=== PATIENT | male | born 1950 | race Caucasian/White ===

== ENCOUNTER 2022-04-13 17:23 | Inpatient (IN) | payer MEDICARE, SELFPAY ==
[2022-04-13] VITALS (9 sets, daily range): BP systolic 112–158; BP diastolic 68–124; PULSE 78–89; RESP 12–18; TEMP 36.3–36.7; O2SAT 92–98; BMI 26.3; BMI 25.0
--- NOTE | 2022-04-13 17:30 | ED.RN ---
BLOOD GLUCOSE 216
[2022-04-13 17:35] LABS: Bedside Glucose 216 mg/dL (74-106)
--- NOTE | 2022-04-13 17:42 | EKG12_ITS ---
Test Reason : Blood Pressure : / mmHG Vent. Rate : 083 BPM Atrial Rate : 083 BPM P-R Int : 174 ms QRS Dur : 094 ms QT Int : 438 ms P-R-T Axes : 037 -09 041 degrees QTc Int : 514 ms Sinus rhythm with frequent and consecutive Premature ventricular complexes Prolonged QT Abnormal ECG Confirmed by PHILIP ANTON, CHARLEE ([id number]), copy editor WENDI SHAH ([id number]) on 04/16/2022 1:05:35 PM Referred By: JERMAINE Confirmed By:CHARLEE PALACIOS MD
--- NOTE | 2022-04-13 17:42 | CT_ITS ---
STUDY: CT BRAIN WITHOUT CONTRAST REASON FOR EXAM: Male, 71 years old. headache TECHNIQUE: Transaxial CT imaging of the brain was performed without administration of intravenous contrast material. Individualized dose optimization techniques were used for this CT. COMPARISON: None FINDINGS: Normal calvarium. Normal soft tissues. Normal size ventricles and extra-axial spaces for the patient''s age. There are areas of decreased attenuation within the white matter tracts of the supratentorial brain, consistent with microvascular disease changes. Normal basal ganglia and thalami. Normal brainstem. Normal cerebellum. There is no intracranial hemorrhage. There are no findings of an acute ischemic infarction. Normal visualized paranasal sinuses. ASPECTS 10 CT/Brain/Head without Contrast IMPRESSION: There are no acute intracranial findings. Electronically Signed: Jason Sanchez MD at 19:20 EDT ,
--- NOTE | 2022-04-13 17:42 | EX.ED.DYSGE1 ---
HPI History of Present Illness Chief Complaint: Syncope Informant: patient Narrative Narrative: Patient presents after an episode of vertigo nausea and vomiting in near syncope that occurred at work. 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 He states he got very dizzy. He felt lightheaded. But he had a sense of motion. He then got nauseated and vomited. He felt like his got a pass out. He notes that when he turns to the right he has more symptoms. But looking straight he still has the nausea. He has never had chest pain or shortness of breath. No back pain. No abdominal pain. He has not been sick recently. He admits that he did not really eat anything today. He did take his meds. No diarrhea. No urinary symptoms. No headache at any time. No numbness tingling weakness swallowing or breathing. He denies change in voice. Speech or vision changes. Past medical history: High blood pressure diabetes Medications: Lotrel, carvedilol, metformin Allergy to sulfa No recent surgeries Still works independently [facility] Medical History Diabetes mellitus, type 2 High blood pressure Sleep apnea Tobacco use Home Medications amlodipine-benazepril [Lotrel] 1 cap PO DAILY 04/13/22 [History Last Taken Unknown] carvedilol 12.5 mg PO DAILY 04/13/22 [History Last Taken Unknown] metformin 500 mg PO DAILY 04/13/22 [History Last Taken Unknown] Allergy/AdvReac Type Severity Reaction Status Date / Time Sulfa (Sulfonamide AdvReac Other Verified 04/13/22 17:29 Antibiotics) Social History Smoking Status: Current every day smoker tobacco type: cigarettes ROS ROS ED Constitutional Constitutional ED: Denies chills or fever(s) Eyes Eyes: Denies blurry vision, change in vision or diplopia ENT ENT ED: Denies ear pain or rhinorrhea Cardiovascular Cardiovascular: Denies chest pain, palpitations or racing heartbeat Respiratory/Chest Respiratory/Chest: Denies cough, dyspnea or sputum Gastrointestinal Gastrointestinal: Reports nausea and vomiting; Denies abdominal pain, constipation, diarrhea or melena Genitourinary Genitourinary ED: Denies dysuria Musculoskeletal Musculoskeletal: Denies back pain, myalgias or neck pain Integumentary Denies rash Neurologic Neurologic: Denies headache(s), paresthesias or weakness Psychiatric Psychiatric: Denies anxiety or depression Endocrine Endocrinology: Denies polydipsia or polyuria Allergic/Immunologic Allergic/Immunologic ED: Denies urticaria EXAM Physical Exam Const Vital Signs: 04/13/22 17:24 04/13/22 18:07 04/13/22 18:08 Temperature 97.4 F L Temperature Source Temporal Pulse Rate 89 78 Respiratory Rate 13 12 Respiratory Effort Normal Respiratory Pattern Normal Blood Pressure 139/124 H 158/106 H Blood Pressure Mean 129 123 Pulse Ox 96 96 Oxygen Delivery Method Room Air Room Air 04/13/22 19:40 04/13/22 20:24 Temperature Temperature Source Pulse Rate 85 87 Respiratory Rate 18 18 Respiratory Effort Respiratory Pattern Blood Pressure 112/70 153/83 H Blood Pressure Mean 84 106 Pulse Ox 94 98 Oxygen Delivery Method Room Air Room Air Patient is holding an emesis bag. He is having retching but no actual vomiting. Positive well nourished and well developed General Appearance ED: well developed; Negative for cyanotic or diaphoretic HEENT Reports moist mucous membranes HEENT Narrative: No trauma or rash. Negative for trauma or tenderness Eyes PERRL and EOMs intact bilaterally Eyes Narrative: Pupillary responses normal. When I have him look to the right he does get a little bit of horizontal nystagmus that is delayed for a few seconds. It and resolves on its own. Neck no lymphadenopathy and supple Chest Wall inspection of chest normal Resp normal respiratory effort and clear to auscultation bilaterally Cardio regular rate, regular rhythm and no murmurs GI normal to inspection, nondistended, normoactive bowel sounds, non-tender and non-distended Back/Spine no CVA tenderness Extremity normal to inspection General Extremety ED: Negative for edema or tenderness General Extremity: Negative for edema Neuro oriented x3 Neuro Narrative: No numbness tingling weakness. No facial droop. No visual field cut. NIH is 0. Sensorium / Orientation: alert Psych mental status grossly normal Skin no rashes or lesions noted MDM MDM MDM Narrative Medical decision making narrative: Patient's electrolytes show minimally decreased potassium. Creatinine and BUN are slightly elevated but not significantly so. Glucose was 200. Liver function tests are overall unremarkable. Troponin was 4 and repeat was 3. CBC showed normal platelets and hemoglobin. However his white count was quite high at 17.2. This elevated white count could be due to the forceful vomiting he has been doing. But we did pursue potential infectious etiology. Urine shows no acute sign of infection. His chest x-ray did hint of a right base infiltrate though. Patient did have a desaturation about 89% here. It is unclear if this was due to pneumonia or his history of sleep apnea after getting meds here. However, with his white count, x-ray finding and desaturation we will treat as pneumonia pending further work-up. Patient is still having intermittent episodes of dry heaves despite multiple meds. I discussed case with hospitalist and he will be admitted. Lab Data Attestation: I reviewed the patient's lab results. Labs: Laboratory Results - last 24 hr 04/13/22 04/13/22 04/13/22 17:12 17:12 17:28 WBC 17.2 H RBC 4.80 Hgb 15.0 Hct 43.9 MCV 91.5 MCH 31.3 MCHC 34.2 RDW Std Deviation 47.1 H RDW Coeff of Kimber[place] 14.0 Plt Count 322 MPV 10.9 Immature Gran % (Auto) 0.500 Neut % (Auto) 53.5 Lymph % (Auto) 34.3 [place] % (Auto) 10.8 H Eos % (Auto) 0.5 Baso % (Auto) 0.4 Absolute Neuts (auto) 9.2 H Absolute Lymphs (auto) 5.89 H Nucleated RBC % 0 Differential Comment Diff Path Review May foll Reactive Lymphocytes 1+ Platelet Estimate ADEQUATE RBC Morphology NORM C+C Sodium 137 Potassium 3.4 L Chloride 105 Carbon Dioxide 23.0 Anion Gap 9 BUN 21 H Creatinine 1.37 H Estim Creat Clear Calc 57.50 Est GFR (MDRD) Af Amer 66 Est GFR (MDRD) Non-Af 54 L BUN/Creatinine Ratio 15.3 Glucose 200 H Lactic Acid Calcium 9.6 Total Bilirubin 0.60 AST 14 L ALT 29 Alkaline Phosphatase 52 Troponin I High Sens 4 Total Protein 8.4 H Albumin 4.2 Globulin 4.2 Albumin/Globulin Ratio 1.0 Urine Color Urine Clarity Urine pH Ur Specific [place] Urine Protein Urine Glucose (UA) Urine Ketones Urine Occult Blood Urine Nitrite Urine Bilirubin Urine Urobilinogen Ur Leukocyte Esterase Urine RBC Urine WBC Ur Squamous Epith Cells Amorphous Sediment Urine Bacteria Urine Mucus POC Glucose 216 H 04/13/22 04/13/22 04/13/22 18:08 19:30 20:20 WBC RBC Hgb Hct MCV MCH MCHC RDW Std Deviation RDW Coeff of Kimber[place] Plt Count MPV Immature Gran % (Auto) Neut % (Auto) Lymph % (Auto) [place] % (Auto) Eos % (Auto) Baso % (Auto) Absolute Neuts (auto) Absolute Lymphs (auto) Nucleated RBC % Differential Comment Diff Path Review Reactive Lymphocytes Platelet Estimate RBC Morphology Sodium Potassium Chloride Carbon Dioxide Anion Gap BUN Creatinine Estim Creat Clear Calc Est GFR (MDRD) Af Amer Est GFR (MDRD) Non-Af BUN/Creatinine Ratio Glucose Lactic Acid 1.8 Calcium Total Bilirubin AST ALT Alkaline Phosphatase Troponin I High Sens 3 Total Protein Albumin Globulin Albumin/Globulin Ratio Urine Color Yellow Urine Clarity Sl. Cloudy Urine pH 6.5 Ur Specific [place] 1.010 Urine Protein Negative Urine Glucose (UA) 250 H Urine Ketones 50 H Urine Occult Blood 10 H Urine Nitrite Negative Urine Bilirubin Negative Urine Urobilinogen Normal Ur Leukocyte Esterase Negative Urine RBC 0-5 SEEN Urine WBC 0 SEEN Ur Squamous Epith Cells 0-5 SEEN Amorphous Sediment 1+ URATE Urine Bacteria 0 SEEN Urine Mucus 0 SEEN POC Glucose Radiography Diagnostic Testing: Clinical Impression(s) from Imaging Studies Brain CT 04/13/22 17:42 IMPRESSION: There are no acute intracranial findings. Electronically Signed: Jason Sanchez MD at 19:20 EDT , Chest X-Ray 04/13/22 20:48 IMPRESSION: Right lower lobe infiltrate. Electronically Signed: Jason Sanchez MD at 21:01 EDT , EKG Initial EKG: Comments: EKG done for lightheadedness read by me shows sinus rhythm with frequent PVCs. Patient and son regarding transfer irregular baseline. However, no ST elevation or pression. Globus. Patient is ID interval and QRS duration With. There is prolonged QTC at 514 ms. There is no old for comparison. Discharge Plan Dx/Rx/DC Orders Clinical Impression: Vertigo, Near syncope, Pneumonia, Leukocytosis Disposition Disposition: Acute Care Hospital [facility]
[2022-04-13] MEDS: Ondansetron 4 MG/2 ML Vial IV ×2 (18:06→20:38)
[2022-04-13 18:11] LABS: Absolute Lymphocyte Count 5.89 X10^3/uL (0.83-4.51); Absolute Neutrophil Count 9.2 X10^3/uL (2.0-7.7); Basophil# 0.07 X10^3/uL; Basophil% 0.4 % (0-1); Eosinophil# 0.09 X10^3/uL; Eosinophils% 0.5 % (0-5); Hematocrit 43.9 % (40-54); Lymphocyte # 5.89 X10^3/ul (0.83-4.51); Lymphocyte % 34.3 % (19-41); Mean Corp Hgb Conc 34.2 g/dL (32-36); Mean Corpuscular Hgb 31.3 pg (27.0-32.0); Mean Corpuscular Volume 91.5 fL (80-94); Mean Platelet Vol. 10.9 fl (6.2-12.0); Monocyte# 1.85 X10^3/uL; Monocyte% 10.8 % (0-10); NRBC Flagged by Analyzer 0 % (0-5); Neutrophil # 9.17 X10^3/uL (2.7-7.7); Neutrophil % 53.5 % (47-70); POSITIVE DIFFERENTIAL YES; Platelet Count 322 K/mm3 (150-450); RBC Distribution Width SD 47.1 fl (35.1-43.9); White Blood Count 17.2 K/mm3 (4.4-11.0)
--- NOTE | 2022-04-13 18:11 | CM.ED ---
SW reviewed tracker. No PCP listed. Patient has PCP as he is a type 1 diabetic per IVANA Gasca. Patient is from [facility] and his pharmacy is in [place]. As patient has a PCP no SW needs identified. Vangie OBRIEN
[2022-04-13 18:31] LABS: AST(SGOT) 14 U/L (15-37); Alanine Aminotransfer ALT/SGPT 29 U/L (16-61); Albumin, Serum 4.2 g/dL (3.2-5.0); Alkaline Phosphatase 52 U/L (45-117); Anion Gap 9 (5-15); BUN 21 mg/dL (7-18); BUN/Creat Ratio 15.3 RATIO (10-20); Calcium,Total 9.6 mg/dL (8.5-10.1); Chloride 105 mmol/L (98-107); Creatinine, Serum 1.37 mg/dL (0.70-1.30); EST Glomerular Filtration Rate 54 mL/min (>60); Est Glom Filt Rate - Afr Amer 66 mL/min (>60); Globulin 4.2 g/dL (2.2-4.2); Glucose 200 mg/dL (74-106); Potassium 3.4 mmol/L (3.5-5.1); Protein, Total 8.4 g/dL (6.4-8.2); Sodium Level 137 mmol/L (136-145); Troponin-I HS (w/2H Reflex) 4 pg/mL (3.0-78.0)
[2022-04-13 18:35] LABS: Differential Indicated SCAN CRITERIA MET
[2022-04-13] MEDS: proMETHazine 25 MG/ML Syringe 12.5 MG IM (18:49)
[2022-04-13 19:32] LABS: Platelet Estimate ADEQUATE (ADEQ); Reactive Lymphocyte 1+; Red Cell Morphology NORM C+C NORMAL (NORM C&C)
[2022-04-13 19:38] LABS: Lactic Acid 1.8 mmol/L (0.4-1.9)
[2022-04-13] MEDS: Meclizine HCl 25 MG Tablet PO (19:38)
[2022-04-13 19:44] LABS: Bacteria 0 SEEN /hpf (None Seen); Mucous, Urine 0 SEEN /hpf (<or=2+); White Blood Cells 0 SEEN /hpf (0-5)
[2022-04-13 19:46] LABS: Color, Urine Yellow (Yellow); Glucose, Dipstick 250 mg/dl (Normal); Ketone-Dipstick 50 mg/dl (Negative); Leukocyte Esterase-Dipstick Negative /ul (Negative); Nitrite-Dipstick Negative (Negative); Occult Blood-Urine 10 /ul (Negative); Protein-Dipstick Negative (Negative); Urine Bilirubin Dipstick Negative (Negative); Urine Clarity Sl. Cloudy (Clear); Urine Urobilinogen Normal (Normal); Urine pH 6.5 (5.0 - 8.0)
[2022-04-13 19:56] LABS: Amorphous Sediment 1+ URATE; Red Blood Cells-Urine 0-5 SEEN /hpf (0-5); Squamous Epithelial Cells - UA 0-5 SEEN /hpf (0-5)
[2022-04-13 20:06] LABS: Reflex Troponin-HS? (from REC) Y
[2022-04-13 20:48] LABS: Troponin-I HS 3 pg/mL (3.0-78.0)
--- NOTE | 2022-04-13 20:48 | RAD_ITS ---
STUDY: XR Chest 1 View 04/13/2022 8:45 PM REASON FOR EXAM: Male, 71 years old. CHEST PAIN Technologist Notes SYNCOPAL EPISODE AT WORK. SUDDENT ONSET OF DIZZINESS. PT. VOMITING. PT. REPORTS FEELING DIZZY AND SAT DOWN AT WORK. PT. STATES THEY HAVE NOT EATEN TODAY. PT. IS TYPE 1 DIABETIC. cough COMPARISON: None TECHNIQUE: XR Chest 1 View FINDINGS: There is no demonstrated pleural abnormality. Right lower lobe infiltrate. Normal heart size. Normal mediastinum. Normal davina. Prominent appearing increased interstitial lung markings. Normal visualized pulmonary arteries. There is atherosclerotic calcification of the aortic arch with tortuosity. There are diffuse degenerative changes of the visualized thoracic spine. There is degenerative osteoarthritis of the bilateral shoulders. There is no demonstrated abnormality of the visualized soft tissue structures of the upper abdomen. RAD/Chest 1 View (Portable) IMPRESSION: Right lower lobe infiltrate. Electronically Signed: Jason Sanchez MD at 21:01 EDT ,
--- NOTE | 2022-04-13 20:54 | PCM.HP.STD ---
HPI - General General Date of Admission: 04/13/22 Date of Service: 04/13/22 Chief Complaint: Dizziness, emesis, syncopal event. HPI Narrative The patient is a 71 y/o M w/ PMHx: Diabetes mellitus type II, HTN, HLD, MARISSA, Tobacco use who presents to the [facility] ED on 04/13/22 with history of acute sudden onset of vertigo sensation with associated nausea and emesis with near syncopal event while at work noting that he was turning around and about to cut someone's hair prompting onset of significant dizziness, lightheadedness, sensation of spinning with episode of nausea and emesis with near syncopal sensation specifically noting that when he turns to the right he feels more symptomatic although he does still have some nausea even if he is looking at straight ahead with no recent fever, chills, dyspnea, chest pain although he does report that he has had minimal oral intake on day of presentation and did take his medications prompting eventual ED evaluation. He denies any recent headaches. He was noted to have recurrent N/V in the ED. Work-up in the ED included T97.4, heart rate 89, BP 139/124, respiratory rate 13, 94-98% on room air but did decrease to 89% while he was specifically sleeping, CBC with WC 17.2, hemoglobin 15, platelets 322 with left shift and lymphocytosis, CMP with potassium 3.4, BUN/creatinine 21/1.37, glucose 200, lactic acid 1.8 otherwise [place] profile not marked appearing, troponin initial 4 with repeat 3, urinalysis with no evidence of acute UTI and specific IV 1.010 of note, CT of the brain with no acute intracranial findings, chest x-ray with RLL infiltrate, EKG with rhythm with PVCs with no acute evidence of ischemia, COVID antigen pending. In the ED patient administered meclizine, zofran therapy, phenergan. Lactic acid pending per ED. [facility] Medical History Diabetes mellitus, type 2 High blood pressure Sleep apnea Tobacco use Home Medications amlodipine-benazepril [Lotrel] 1 cap PO DAILY 04/13/22 [History Last Taken Unknown] carvedilol 12.5 mg PO DAILY 04/13/22 [History Last Taken Unknown] metformin 500 mg PO DAILY 04/13/22 [History Last Taken Unknown] Allergy/AdvReac Type Severity Reaction Status Date / Time Sulfa (Sulfonamide AdvReac Other Verified 04/13/22 17:29 Antibiotics) Family History (Updated 04/13/22 @ 21:[address] Mary Grace Portillo MD) Mother Diabetes Father Heart disease Surgical History (Updated 04/13/22 @ 21:[address] Mary Grace Portillo MD) History of back surgery History of hand surgery History of tonsillectomy and adenoidectomy S/P appendectomy S/P arthroscopic surgery of right knee Social History (Updated 04/13/22 @ 21:[address] Mary Grace Portillo MD) household members: other details: His x- and he still live together. She is undergoing tx for breast CA. Smoking Status: Current every day smoker tobacco type: cigarettes Smoking packs per day: 0.5 Smoking cigarettes per day: 10.0 Years smoked: 55 Smoking pack-years: 27.50 alcohol intake: current alcohol intake frequency: a few times a month substance use type: does not use ROS ROS Narrative Admission Review of Systems: CONSTITUTIONAL: No weight loss, fever, chills, + weakness or fatigue. HEENT: + LH, dizziness, vertigo. Eyes: No visual loss, blurred vision, double vision or yellow sclerae. Ears, Nose, Throat: No hearing loss, sneezing, congestion, runny nose or sore throat. SKIN: No rash or itching, lesions, wounds. CARDIOVASCULAR: No chest pain, chest pressure or chest discomfort, palpitations, edema, orthopnea, syncopal events. RESPIRATORY: No shortness of breath, cough or sputum, wheezing, hemoptysis. GASTROINTESTINAL: + anorexia, nausea, vomiting, No diarrhea, abdominal pain, melena, BRBPR. GENITOURINARY: No dysuria, frequency, urgency or retention. NEUROLOGICAL: + Vertigo, headache, dizziness, near syncope, No paralysis, ataxia, numbness or tingling in the extremities, focal weakness, change in bowel or bladder control, seizure. MUSCULOSKELETAL: No muscle, back pain, joint pain or stiffness. HEMATOLOGIC: No anemia, bleeding or bruising. LYMPHATICS: No enlarged nodes. No history of splenectomy. PSYCHIATRIC: No history of depression or anxiety. ENDOCRINOLOGIC: No reports of sweating, cold or heat intolerance. No polyuria or polydipsia. ALLERGIES: No history of asthma, hives, eczema or rhinitis. Vital Signs Vital Signs Vital Signs: 04/13/22 17:24 04/13/22 18:07 04/13/22 18:08 Temperature 97.4 F L Temperature Source Temporal Pulse Rate 89 78 Respiratory Rate 13 12 Respiratory Effort Normal Respiratory Pattern Normal Blood Pressure 139/124 H 158/106 H Blood Pressure Mean 129 123 Pulse Ox 96 96 Oxygen Delivery Method Room Air Room Air 04/13/22 19:40 04/13/22 20:24 Temperature Temperature Source Pulse Rate 85 87 Respiratory Rate 18 18 Respiratory Effort Respiratory Pattern Blood Pressure 112/70 153/83 H Blood Pressure Mean 84 106 Pulse Ox 94 98 Oxygen Delivery Method Room Air Room Air Weight Weight: 205 lb Body Mass Index (BMI) 26.3 Physical Exam Narrative Physical Examination: General: Awake, alert, oriented x 3 and cooperative, seated upright in the ED bed, fatigued appearing. Skin: Normal color, normal turgor, no icterus, no cyanosis. HEENT: AT/NC, EOMI, PERRLA, dry MM, no carotid bruits or JVD noted. Lungs: Mildly diminished bilateral bases, right greater than left, appropriate effort, no rales, ronchi or wheezing. Heart: Currently regular rate and rhythm; no gallop, rub audible. Abdomen: Soft, NTTP, ND, mildly hyperactive BS, no HSM. Extremities: No cyanosis, clubbing, or edema. Neurological: Patient awake, alert, oriented as noted, cognitive function intact; pupils equally reactive to light and accommodation, cranial nerves II-XII grossly normal, moving all 4 extremities, no focal deficits, unable to reproduce any vertiginous symptoms, no nystagmus noted, strength moderately global decrease secondary to acute presentation. Psychiatric: Affect appears fatigued, no acute evidence of depressive or anxiety feelings. Results Lab / Micro Data Result Diagrams: 04/13/22 17:12 04/13/22 17:12 Labs: Laboratory Results - last 24 hr 04/13/22 17:12: WBC 17.2 H, RBC 4.80, Hgb 15.0, Hct 43.9, MCV 91.5, MCH 31.3, MCHC 34.2, RDW Std Deviation 47.1 H, RDW Coeff of Kimberly 14.0, Plt Count 322, MPV 10.9, Immature Gran % (Auto) 0.500, Neut % (Auto) 53.5, Lymph % (Auto) 34.3, [place] % (Auto) 10.8 H, Eos % (Auto) 0.5, Baso % (Auto) 0.4, Absolute Neuts (auto) 9.2 H, Absolute Lymphs (auto) 5.89 H, Nucleated RBC % 0, Differential Comment , Diff Path Review May foll, Reactive Lymphocytes 1+, Platelet Estimate ADEQUATE, RBC Morphology NORM C+C 04/13/22 17:12: Sodium 137, Potassium 3.4 L, Chloride 105, Carbon Dioxide 23.0, Anion Gap 9, BUN 21 H, Creatinine 1.37 H, Estim Creat Clear Calc 57.50, Est GFR (MDRD) Af Amer 66, Est GFR (MDRD) Non-Af 54 L, BUN/Creatinine Ratio 15.3, Glucose 200 H, Calcium 9.6, Total Bilirubin 0.60, AST 14 L, ALT 29, Alkaline Phosphatase 52, Troponin I High Sens 4, Total Protein 8.4 H, Albumin 4.2, Globulin 4.2, Albumin/Globulin Ratio 1.0 04/13/22 17:28: POC Glucose 216 H 04/13/22 18:08: Lactic Acid 1.8 04/13/22 19:30: Urine Color Yellow, Urine Clarity Sl. Cloudy, Urine pH 6.5, Ur Specific [place] 1.010, Urine Protein Negative, Urine Glucose (UA) 250 H, Urine Ketones 50 H, Urine Occult Blood 10 H, Urine Nitrite Negative, Urine Bilirubin Negative, Urine Urobilinogen Normal, Ur Leukocyte Esterase Negative, Urine RBC 0-5 SEEN, Urine WBC 0 SEEN, Ur Squamous Epith Cells 0-5 SEEN, Amorphous Sediment 1+ URATE, Urine Bacteria 0 SEEN, Urine Mucus 0 SEEN 04/13/22 20:20: Troponin I High Sens [address] 04/13/22 17:42 IMPRESSION: There are no acute intracranial findings. Electronically Signed: Jason Sanchez MD at 19:20 EDT Reading Location ID and State: [facility] / [place] , Service support , Assessment & Plan Assessment/Plan (1) Pneumonia: QUALIFIERS: Pneumonia type: due to unspecified organism Laterality: right Lung location: lower lobe of lung Qualified Code(s): J18.9 - Pneumonia, unspecified organism (2) Near syncope: (3) Vertigo: PLAN: The patient is a 71 y/o M w/ PMHx: Diabetes mellitus type II, HTN, HLD, MARISSA, Tobacco use who presents to the [facility] ED on 04/13/22 with history of acute sudden onset of vertigo sensation with associated nausea and emesis with near syncopal event while at work noting that he was turning around and about to cut someone's hair prompting onset of significant dizziness, lightheadedness, sensation of spinning with episode of nausea and emesis with near syncopal sensation specifically noting that when he turns to the right he feels more symptomatic although he does still have some nausea even if he is looking at straight ahead with no recent fever, chills, dyspnea, chest pain although he does report that he has had minimal oral intake on day of presentation and did take his medications prompting eventual ED evaluation. #1. Vertigo with Near Syncope, possibly related to #2: EKG in ED w/ sinus rhythm with frequent PVCs without evidence of acute ischemia, CXR w/ questionable right lower lobe infiltrate, initial trop normal and repeat also unremarkable. Will admit to PCU to be cautious although symptoms certainly could be secondary to #2, place on a monitored bed to assure no acute myocardial infarction with serial cardiac enzymes and EKGs, maintain on fall precautions, obtain admission orthostatic and AM orthostatic VS and increase hydration if appropriate, continue meclizine regimen, given no prior history will additionally obtain an ECHO to be cautious, obtain magnesium level and if no marked improvement would plan to obtain MRI brain to be cautious. PT/OT consultation to ascertain stability and discharge needs. #2. Questionable Community Acquired Pneumonia with Hypoxia: Will maintain on oxygen with wean as tolerated to room air, PRN albuterol, maintained on IV Rocephin and Azithromycin, HOB, IS parameters w/ pending sputum cultures, respiratory viral panel and urine antigens. Given no marked PNA type symptoms will additionally obtain procalcitonin. Lactic acid pending. Bld cx x 2 obtained in the ED. Do suspect even if truly PNA, unclear if truly related. #3. Hypertension: We will continue patient home Coreg, bladder pain, benazepril with hold parameters as needed, PRN IV hydralazine. #4. Diabetes mellitus type II: Hold oral home regimen, initiate on clear liquids given #1 and if improving ADAT to ADA diet, accu checks w/ ISS. #5. Tobacco Abuse: Encouraged cessation, inpatient consultation per RT, NR if desired. #6. MARISSA: CPAP q HS. #7. DVT prophylaxis: SCDs, lovenox. #8. CODE status: Patient FRANCINE is his ex- Yue and living will is currently in place. Discussed CODE status at length including difference between FULL code, DNR-CCA and DNR-CC status. Following discussions about the differences in these status, requested Full Code status. Advanced Care Planning Face to Face Time: 16 minutes. Charges/Coding Visit Charges OBSV E&M: 87854 Initial observation care L3 Procedures Hospitalists Procedures: [id number] Advncd Care Plan 30 Min
[2022-04-13] MEDS: Ceftriaxone 1 GM/50 ML BAG IV (21:44)
[2022-04-13 21:54] LABS: Magnesium 1.9 mg/dL (1.6-2.6)
[2022-04-13 22:04] LABS: Lactic Acid 0.8 mmol/L (0.4-1.9)
--- NOTE | 2022-04-13 22:04 | ECHOD_ITS ---
Reason For Study: Near Syncope Procedure This was a 2D Doppler, Color Flow transthoracic echocardiogram. Exam performed portable in patient room. Left Ventricle Normal LV size. Left ventricular systolic function is normal. The estimated ejection fraction is 60 %. Stage 1 diastolic dysfunction. No regional wall motion abnormalities noted. Right Ventricle Normal RV size. Normal systolic function. Atria Normal left atrium. Normal right atrium. Mitral Valve Normal mitral valve. Mild (1+) eccentric mitral valve insufficiency. Tricuspid Valve Normal tricuspid valve. Mild (1+) tricuspid valve insufficiency. Pulmonary artery systolic pressure is 40 mmHg. Aortic Valve Trisinus/trileaflet aortic valve. Mild focal aortic valve calcification. Peak aortic valve gradient 26 mmHg. Mean aortic valve gradient 14 mmHg. Pulmonic Valve Normal pulmonic valve. Great Vessels Normal aortic root. The pulmonary artery is normal size. Normal inferior vena cava. Pericardium/Pleural No pericardial effusion. Medication Performed a rapid injection of agitated mix of 9 cc saline and 1cc air to assess for atrial septal defect. MMode/2D Measurements & Calculations LVIDd: 4.8 cm IVSd: 1.2 cm Ao root diam: 3.3 cm LVIDs: 3.1 cm LVPWd: 0.99 cm RVDd: 4.7 cm FS: 36.6 % LAV(MOD-bp): 61.3 ml LVAd ap4: 28.9 cm2 SV(MOD-sp4): 45.1 ml LAV(MOD-bp) Indexed: 27.9 ml/m2 LVLd ap4: 8.9 cm LAV(MOD-sp2): 54.0 ml EDV(MOD-sp4): 76.4 ml LAV(MOD-sp4): 68.7 ml EDV(sp4-el): 79.1 ml LVAs ap4: 15.8 cm2 LVLs ap4: 7.1 cm ESV(MOD-sp4): 31.3 ml ESV(sp4-el): 29.7 ml EF(MOD-sp4): 59.0 % EF(sp4-el): 62.5 % SV(sp4-el): 49.5 ml LA A4 area: 22.2 cm2 LA dimension(2D): 4.0 cm RA A4 area: 19.8 cm2 Doppler Measurements & Calculations MV E max elijah: 81.9 cm/sec Lat Peak E' Elijah: 10.4 cm/sec Med Peak E' Elijah: 5.9 cm/sec MV A max elijah: 100.8 cm/sec E/E' lat: 7.9 E/E' med: 13.8 MV E/A: 0.81 Ao V2 max: 256.6 cm/sec LV V1 max: 113.1 cm/sec PA V2 max: 95.3 cm/sec Ao max P.4 mmHg LV V1 max P.1 mmHg Ao V2 mean: 178.8 cm/sec LV V1 mean P.9 mmHg Ao mean P.1 mmHg LV V1 mean: 82.3 cm/sec Ao V2 VTI: 51.0 cm LV V1 VTI: 25.2 cm TR max elijah: 300.0 cm/sec TR max P.0 mmHg ECHO/Echo Complete Interpretation Summary Normal LV size. Left ventricular systolic function is normal. The estimated ejection fraction is 60 %. Stage 1 diastolic dysfunction. Pulmonary artery systolic pressure is 40 mmHg. Ordering Physician: Adrián Malone Performed By: Mandi Morris, HANNAH, RVT
[2022-04-13 22:09] LABS: Procalcitonin < 0.04 ng/mL (0.00-0.09)
--- NOTE | 2022-04-13 23:05 | CPS ---
pt refused CPAP at this time
[2022-04-13] MEDS: 0.9% Normal Saline 1,000 ML 125 ML IV (23:11)
[2022-04-13] MEDS: Famotidine 20 MG Tablet PO (23:12)
[2022-04-13] MEDS: Carvedilol 6.25 MG Tablet PO (23:19)
[2022-04-13] MEDS: Insulin Lispro 100 UNIT/ML INSULN.PEN SC (23:19)
[2022-04-13 23:46] LABS: Troponin-I HS 7 pg/mL (3.0-78.0)
[2022-04-13 23:46] LABS: Bedside Glucose 182 mg/dL (74-106)
[2022-04-14] VITALS (10 sets, daily range): BP systolic 129–142; BP diastolic 71–85; PULSE 60–80; RESP 16–17; TEMP 36.2–37.2; O2SAT 93–97; BMI 25.0
[2022-04-14] MEDS: Meclizine HCl 25 MG Tablet PO ×3 (05:54→21:38)
[2022-04-14] MEDS: 0.9% Normal Saline 1,000 ML 125 ML IV (05:54)
[2022-04-14 06:31] LABS: Absolute Lymphocyte Count 2.38 X10^3/uL (0.83-4.51); Absolute Neutrophil Count 7.5 X10^3/uL (2.0-7.7); Basophil# 0.04 X10^3/uL; Basophil% 0.4 % (0-1); Eosinophil# 0.04 X10^3/uL; Eosinophils% 0.4 % (0-5); Hemoglobin 13.4 g/dL (13.0-16.5); Lymphocyte # 2.38 X10^3/ul (0.83-4.51); Lymphocyte % 21.5 % (19-41); Mean Corp Hgb Conc 32.7 g/dL (32-36); Mean Corpuscular Hgb 30.5 pg (27.0-32.0); Mean Corpuscular Volume 93.4 fL (80-94); Mean Platelet Vol. 10.4 fl (6.2-12.0); Monocyte% 9.9 % (0-10); NRBC Flagged by Analyzer 0 % (0-5); Neutrophil # 7.46 X10^3/uL (2.7-7.7); Neutrophil % 67.3 % (47-70); Platelet Count 249 K/mm3 (150-450); RBC Distribution Width SD 47.4 fl (35.1-43.9); Red Blood Count 4.39 M/mm3 (4.6-6.2); White Blood Count 11.1 K/mm3 (4.4-11.0)
[2022-04-14 06:45] LABS: Bedside Glucose 138 mg/dL (74-106)
[2022-04-14 06:54] LABS: ALB/GLOB Ratio 0.9 RATIO (0.9-2.4); AST(SGOT) 12 U/L (15-37); Alanine Aminotransfer ALT/SGPT 21 U/L (16-61); Albumin, Serum 3.3 g/dL (3.2-5.0); Alkaline Phosphatase 40 U/L (45-117); Anion Gap 7 (5-15); BUN 12 mg/dL (7-18); Calcium,Total 8.8 mg/dL (8.5-10.1); Chloride 109 mmol/L (98-107); Creatinine, Serum 0.71 mg/dL (0.70-1.30); EST Glomerular Filtration Rate 117 mL/min (>60); Est Glom Filt Rate - Afr Amer 141 mL/min (>60); Estimated Creatinine Clearance 78.78 ml/min; Globulin 3.5 g/dL (2.2-4.2); Glucose 108 mg/dL (74-106); Potassium 3.7 mmol/L (3.5-5.1); Protein, Total 6.8 g/dL (6.4-8.2); Sodium Level 139 mmol/L (136-145)
--- NOTE | 2022-04-14 08:01 | PN.HOSP_ITS ---
Subjective Subjective Follow-up for dizziness/near syncope. Patient also had mild cough for few days with clearing sputum/saliva. No shortness of breath tachypnea. Persistent dizziness and vertigo. Objective Data Objective Data Vital Signs: Vital Signs Temp Pulse Resp BP Pulse Ox 98.0 F 68 16 142/72 H 94 04/14/22 04:05 04/14/22 06:49 04/14/22 04:05 04/14/22 04:05 04/14/22 04:05 Oxygen Flow Rate (L/min) 2 Oxygen Delivery Method Room Air Weight: 194 lb 10.691 oz Body Mass Index (BMI) 25.0 Intake & Output: Intake and Output for Last 24 Hours 04/12/22 04/13/22 04/14/22 23:59 23:59 23:59 Intake Total 805 / 805 1179.58 / 1179.58 Output Total 0 / 0 Balance 805 / 805 1179.58 / 1179.58 Lab / Micro Data Result Diagrams: 04/14/22 05:35 04/14/22 05:35 Labs: Laboratory Results - last 24 hr 04/13/22 17:12: WBC 17.2 H, RBC 4.80, Hgb 15.0, Hct 43.9, MCV 91.5, MCH 31.3, MCHC 34.2, RDW Std Deviation 47.1 H, RDW Coeff of Kimberly 14.0, Plt Count 322, MPV 10.9, Immature Gran % (Auto) 0.500, Neut % (Auto) 53.5, Lymph % (Auto) 34.3, [place] % (Auto) 10.8 H, Eos % (Auto) 0.5, Baso % (Auto) 0.4, Absolute Neuts (auto) 9.2 H, Absolute Lymphs (auto) 5.89 H, Nucleated RBC % 0, Differential Comment , Diff Path Review May foll, Reactive Lymphocytes 1+, Platelet Estimate ADEQUATE, RBC Morphology NORM C+C 04/13/22 17:12: Sodium 137, Potassium 3.4 L, Chloride 105, Carbon Dioxide 23.0, Anion Gap 9, BUN 21 H, Creatinine 1.37 H, Estim Creat Clear Calc 57.50, Est GFR (MDRD) Af Amer 66, Est GFR (MDRD) Non-Af 54 L, BUN/Creatinine Ratio 15.3, Glucose 200 H, Calcium 9.6, Total Bilirubin 0.60, AST 14 L, ALT 29, Alkaline Phosphatase 52, Troponin I High Sens 4, Total Protein 8.4 H, Albumin 4.2, Globulin 4.2, Albumin/Globulin Ratio 1.0 04/13/22 17:28: POC Glucose 216 H 04/13/22 18:08: Lactic Acid 1.8 04/13/22 19:30: Urine Color Yellow, Urine Clarity Sl. Cloudy, Urine pH 6.5, Ur Specific Vale 1.010, Urine Protein Negative, Urine Glucose (UA) 250 H, Urine Ketones 50 H, Urine Occult Blood 10 H, Urine Nitrite Negative, Urine Bilirubin Negative, Urine Urobilinogen Normal, Ur Leukocyte Esterase Negative, Urine RBC 0-5 SEEN, Urine WBC 0 SEEN, Ur Squamous Epith Cells 0-5 SEEN, Amorphous Sediment 1+ URATE, Urine Bacteria 0 SEEN, Urine Mucus 0 SEEN 04/13/22 20:20: Troponin I High Sens 3 04/13/22 21:29: Lactic Acid 0.8 04/13/22 21:29: Magnesium 1.9 04/13/22 21:29: Procalcitonin < 0.04 04/13/22 23:12: Troponin I High Sens 7 04/13/22 23:19: POC Glucose 182 H 04/14/22 05:35: WBC 11.1 H, RBC 4.39 L, Hgb 13.4, Hct 41.0, MCV 93.4, MCH 30.5, MCHC 32.7, RDW Std Deviation 47.4 H, RDW Coeff of Kimberly 14.0, Plt Count 249, MPV 10.4, Immature Gran % (Auto) 0.500, Neut % (Auto) 67.3, Lymph % (Auto) 21.5, [place] % (Auto) 9.9, Eos % (Auto) 0.4, Baso % (Auto) 0.4, Absolute Neuts (auto) 7.5, Absolute Lymphs (auto) 2.38, Nucleated RBC % 0 04/14/22 05:35: Sodium 139, Potassium 3.7, Chloride 109 H, Carbon Dioxide 23.0, Anion Gap 7, BUN 12, Creatinine 0.71, Estim Creat Clear Calc 78.78, Est GFR (MDRD) Af Amer 141, Est GFR (MDRD) Non-Af 117, BUN/Creatinine Ratio 17.0, Glucose 108 H, Calcium 8.8, Total Bilirubin 0.40, AST 12 L, ALT 21, Alkaline Phosphatase 40 L, Total Protein 6.8, Albumin 3.3, Globulin 3.5, Albumin/Globulin Ratio 0.9 04/14/22 06:40: POC Glucose 138 H Micro: Microbiology 04/13/22 22:40 Mucosa - Nose Respiratory Panel (PCR) - Final 04/13/22 19:30 Urine, Clean Catch Legionella Antigen - Final 04/13/22 19:30 Urine, Clean Catch Streptococcus pneumoniae Antigen (M - Final 04/13/22 20:25 Nasal Secretion SARS-CoV-2 Antigen (Rapid) - Final Radiography Diagnostic Testing: Radiology Impression Brain CT 04/13/22 17:42 IMPRESSION: There are no acute intracranial findings. Electronically Signed: Jason Sanchez MD at 19:20 EDT , Chest X-Ray 04/13/22 20:48 IMPRESSION: Right lower lobe infiltrate. Electronically Signed: Jason Sanchez MD at 21:01 EDT , Physical Exam Narrative Physical Examination: General: Alert, Oriented x3, Cooperative HEENT: Diplopia on right lateral gaze. Field of vision intact. No quadrantanopsia/hemianopia/anopia. Atraumatic, PERRLA, EOMI, Normocephalic Oral: No Gingival or Mucosal Lesions/ Ulcerations Neck: Supple, No JVD, Negative Carotid Bruits Lungs: Air entry diminished in bilateral lung bases. No crepitation/rhonchi Cardiovascular: Regular rate, Regular Rhythm, Normal S1, Normal S2, No murmurs Abdomen: Bowel Sounds Present, Soft, Non Tender, Non-Distended : No renal angle tenderness. No suprapubic tenderness. Extremities: No edema, Capillary Refill Less than 3 Seconds Skin: No rashes, No breakdown Musculoskeletal: No Tenderness to Palpation of Joints or Extremities Neurological: Cranial nerves II-XII grossly intact, DTR 2+/4. Language function intact. No dysarthria/dysphagia. NIH stroke scale 0 Psych/Mental Status: Normal Affect, Appropriate. Assessment & Plan Assessment/Plan (1) Pneumonia: QUALIFIERS: Laterality: right Lung location: lower lobe of lung Pneumonia type: due to unspecified organism Qualified Code(s): J18.9 - Pneumonia, unspecified organism (2) Near syncope: (3) Vertigo: PLAN: The patient is a 71 y/o M w/ PMHx with multiple comorbidities were admitted with acute sudden onset of vertigo with associated nausea and emesis, near syncopal event while at work. His dizziness and vertigo related turning to head to right side. Observation status changed to inpatient. #1. Vertigo with Near Syncope, possibly related to pneumonia: Twelve-lead EKG shows sinus rhythm with frequent PACs, QTC 414 ms. Initial 2 troponins negative. Patient is admitted to PCU. Brain CT no acute intracranial abnormality. 2D echo is ordered. Orthostatic vitals does not show significant abnormality. /: MRI brain ordered as patient has persistent dizziness and vertigo, right lateral gaze diplopia with history of hypertension and diabetes mellitus type 2. No prior history of a stroke. 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 Full stroke work-up ordered including CTA head and neck, echo, NIH stroke scale monitoring, BP and glucose monitoring, management as per stroke guidelines. Fasting profile, A1c and TSH tomorrow AM. SOC neuro consult after stroke work-up is complete. #2. right lower lobe community Acquired Pneumonia with Hypoxia: Patient had leukocytosis with left shift on day of admission. Repeat CBC shows improvement. Chest x-ray individually reviewed shows right lower lobe infiltrate. As per ER physician, patient desaturated about 89% in ED but vital signs reviewed does not show hypoxia. Urinary antigens are negative. SARS-CoV-2 negative. Respiratory panel negative. Patient on IV Rocephin and Zithromax. Blood cultures x2 obtained in ED #3. Hypertension: continue patient home Coreg, bladder pain, benazepril with hold parameters as needed, PRN IV hydralazine. #4. Diabetes mellitus type II: Hold oral home regimen, i on clear liquids given #1 and if improving ADAT to ADA diet, accu checks w/ ISS. #5. Tobacco Abuse: Encouraged cessation, inpatient consultation per RT, NR if desired. #6. MARISSA: CPAP q HS. #7. DVT prophylaxis: SCDs, lovenox. #8. CODE status: Patient FRANCINE is his ex- Yue and living will is currently in place. Discussed CODE status at length including difference between FULL code, DNR-CCA and DNR-CC status. Following discussions about the differences in these status, requested Full Code status. Advanced Care Planning Face to Face Time: 16 minutes. Clinical Impression(s) from Imaging Studies Brain CT 04/13/22 17:42 IMPRESSION: There are no acute intracranial findings. Chest X-Ray 04/13/22 20:48 IMPRESSION: Right lower lobe infiltrate. Brain MRI 04/14/22 11:35 IMPRESSION: Small acute left cerebellar nodulus infarct. Mild chronic small vessel ischemic gliosis. Charges/Coding Visit Charges Inpatient E&M: 15605 Subs Hosp L2
[2022-04-14] MEDS: Ceftriaxone 1 GM/50 ML BAG IV (09:35)
[2022-04-14] MEDS: Famotidine 20 MG Tablet PO ×2 (09:41→21:37)
[2022-04-14] MEDS: Carvedilol 6.25 MG Tablet PO ×2 (09:41→21:38)
[2022-04-14] MEDS: Lisinopril 20 MG Tablet PO (09:41)
[2022-04-14] MEDS: amLODIPine 10 MG Tablet PO (09:41)
[2022-04-14] MEDS: Enoxaparin 40 MG/0.4 ML Syringe SC (09:42)
--- NOTE | 2022-04-14 11:35 | MRI_ITS ---
ACR Level 3 findings have been noted. An addendum which confirms receipt of the report will follow. HISTORY: diplopia, vertigo, dizziness. TECHNIQUE: Multiplanar and multisequence MR images of the brain were obtained without contrast. 294 images. COMPARISON: CT prior day. FINDINGS: BRAIN PARENCHYMA: Small acute cerebellar infarct at the nodulus to the left of the vermis. No acute intracranial hemorrhage identified. Mild chronic small vessel ischemic gliosis. CSF SPACES: Mild generalized volume loss. No significant midline shift or other mass effect.No extra-axial fluid collection. VASCULAR SYSTEM: Major intracranial flow voids are maintained. PARANASAL SINUSES AND MASTOID AIR CELLS: Small maxillary sinus mucous retention cysts. ORBITS: Symmetric contents. MRI/Brain without Contrast IMPRESSION: Small acute left cerebellar nodulus infarct. Mild chronic small vessel ischemic gliosis. Electronically Signed: Chrissy Hernandez MD at 12:34 EDT ,
--- NOTE | 2022-04-14 12:10 | CASEMGMT ---
IVANA JOHNSON assessment: Face to Face with patient for initial transition planning/care coordination assessment. IVANA JOHNSON introduced self and role at [facility], pt voices understanding and consents to assessment. Pt is sitting up in bed in no distress on room air. Pt is A/Ox4 and answers all questions appropriately. Care providers, pharmacy, and demographics verified. Presentation: Pt c/o syncopal episode at work-sudden onset dizziness-pt vomiting-has not eaten today-pt is type 1 DM Admitting dx: Pneumonia, vertigo, syncope PCP: [facility] Specialists: louisa Hernandez Preferred Pharmacy: [facility] [employer] [facility] Prescription Benefit: AARCR Living Will/HPOA: Pt has LW/HPOA and is aware they are not on file at [facility]. Pt states his ex-, Yue Otero, is HPOA. LNOK: Yue Otero, ex-/HPOA Living Arrangements: Pt lives with ex- 2 story home and states no concerns at home. Pt is independent with ADL's. Transportation: Pt drives self and states no transportation concerns. DME/HHC: Pt has w/c and cpap thru [facility]. Pt states has had HHC in the past but has not been to SNF. Pt states no concerns with going home at time of discharge. Pt is retired. Pt smokes 1/2 pack cigarettes daily and occasionally drinks ETOH. Pt states no further concerns/needs. CM to follow for any further discharge planning/needs. Advised pt to ask for CM if any further questions/concerns/needs arise, voices understanding. Pt Goal: Home Plan[place] IVANA JOHNSON
[2022-04-14 13:21] LABS: Bedside Glucose 136 mg/dL (74-106)
--- NOTE | 2022-04-14 13:36 | CT_ITS ---
STUDY: CTA HEAD AND NECK WITH CONTRAST REASON FOR EXAM: Male, 71 years old. CVA RADIATION DOSAGE (If Supplied By Facility): CTDIvol = ( 33.79 ) mGy, DLP = ( 1687.55 ) mGycm TECHNIQUE: CT angiography was performed with a multi-detector CT scanner. Data acquisition was obtained from the skull base through the vertex following intravenous administration of 75 ML ISOVUE 370. MIP images were reconstructed from the axial data set. Post-processing of the angiographic images was performed, with multiplanar reformation and 3D reconstruction. Individualized dose optimization techniques were used for this CT. COMPARISON: No relevant priors. FINDINGS: Normal bilateral petrous carotid arteries. Normal right cavernous carotid artery with a normal supraclinoid bifurcation. Normal left cavernous carotid artery with a normal supraclinoid bifurcation. Normal right A1 segments of the anterior cerebral artery. Normal left A1 segments of the anterior cerebral artery. Normal intact anterior communicating artery (ACOM). Normal bilateral A2 segments of the anterior cerebral arteries. Normal right M1 and M2 segments of the middle cerebral arteries, with a normal M1 bifurcation. Normal left M1 and M2 segments of the middle cerebral arteries, with a normal M1 bifurcation. Normal right posterior communicating artery (PCOM). Normal left posterior communicating artery (PCOM). Normal bilateral vertebral arteries. Normal basilar artery with a normal basilar bifurcation. The visualized bilateral superior cerebellar (SCA) arteries are normal. Normal bilateral P1, P2 and visualized P3 segments of the posterior cerebral arteries. There is no demonstrated aneurysm of the [place]ka of [place]. There is no demonstrated abnormality of the visualized brain. AORTIC ARCH: Normal visualized aortic arch. Normal origins of the brachiocephalic, left common carotid, and left subclavian arteries. RIGHT CAROTID ARTERIES: Normal right common carotid artery (CCA). Normal right common carotid bulb. Normal origin of the right internal carotid (ICA) artery without a hemodynamically significant stenosis. Normal visualized cervical portion of the right internal carotid artery. Normal origin of the right external carotid artery (ECA). LEFT CAROTID ARTERIES: Normal left common carotid artery (CCA). Normal left common carotid bulb. Normal origin of the left internal carotid (ICA) artery without a hemodynamically significant stenosis. Normal visualized cervical portion of the left internal carotid artery. Normal origin of the left external carotid artery (ECA). VERTEBRAL ARTERIES: There is enhancement within the bilateral vertebral arteries with a small right vertebral artery, and a dominant left vertebral artery. CT/CTA Head AND Neck W/ Contrast IMPRESSION: Normal CTA Head and neck with contrast. Electronically Signed: Mu Christopher MD at 15:42 EDT ,
--- NOTE | 2022-04-14 13:37 | TELEMED_ITS ---
[facility] Telemed has confirmed receipt of a request for visit. This document confirms receipt of the order initiating the consult. To find the results of the consultation, please view the patient's reports for the scanned Telemed Consult.
[2022-04-14] MEDS: Aspirin 81 MG TAB.CHEW PO (13:56)
[2022-04-14 16:31] LABS: Bedside Glucose 126 mg/dL (74-106)
[2022-04-14 21:50] LABS: Bedside Glucose 118 mg/dL (74-106)
[2022-04-15] VITALS (8 sets, daily range): BP systolic 128–166; BP diastolic 72–88; PULSE 62–71; RESP 16–18; TEMP 36.6–36.9; O2SAT 94–100; BMI 25.0
[2022-04-15] MEDS: Meclizine HCl 25 MG Tablet PO ×2 (05:34→14:28)
[2022-04-15 06:50] LABS: Bedside Glucose 159 mg/dL (74-106)
[2022-04-15 08:01] LABS: Cholesterol 179 mg/dL (200); High Density Lipoprotein 32 mg/dL; Thyroid Stim Hormone (TSH) 0.55 uIU/mL (0.358-3.74); Triglycerides 193 mg/dL; Very Low Density Lipoprotein 39 mg/dL (5-40)
--- NOTE | 2022-04-15 09:16 | PCM.DC ---
Discharge Instructions Diet Discharge Diet: Low fat / Low cholesterol, 1800 Calorie Control Diet and 2000 mg Sodium Diet Activity Discharge Activity: May Not Drive Weight Bearing Status: Weight bearing as tolerated Dressing / Incision Call your doctor if you observe: Fever of 101 or Higher, Coldness, Increased Pain, Numbness or Tingling, Change in Color, Inability to urinate, Inability to have a bowel movement, Shortness of breath, Dizziness, Fainting spells, Swelling in the ankles, Chest pain, Increased palpitations (irregular heartbeat), Calf discomfort and Uncontrolled pain Follow Up Care Test Results: Test results from this visit will be discussed in further detail at your follow-up appointment, if applicable. Discharge Plan Admission Admit Date/Time: 04/14/22 10:22 Primary Reason for Your Visit: Attending Provider: Adrián Malone Consulting Providers: Mary Grace Portillo Instructions Additional Instructions / Restrictions: Patient wants to follow local neurologist in [place]. Advised to follow-up with neurologist in 2 weeks. Use erythromycin ointment for 4 days Discharge Orders/Prescriptions Prescriptions: New aspirin 81 mg Tablet,Chewable 81 mg PO BREAKFAST Qty: 30 RF: 2 atorvastatin 80 mg Tablet 40 mg PO QHS Qty: 30 RF: 1 erythromycin 5 mg/gram (0.5 %) Ointment 1 applic LEFT EYE 4X/DAY Qty: 3.5 RF: 0 nicotine 14 mg/24 hr Patch 24 Hour 14 mg transdermal DAILY Qty: 28 RF: 0 levofloxacin 500 mg tablet 500 mg PO Q24H Qty: 5 RF: 0 Continued amlodipine-benazepril [Lotrel] 10-20 mg Capsule 1 cap PO DAILY RF: 0 metformin 500 mg Tablet 500 mg PO DAILY Qty: 0 RF: 0 carvedilol 12.5 mg Tablet 12.5 mg PO DAILY Qty: 0 RF: 0 Other Ambulatory Orders: 30-Day Event Recorder (Routine) Location: None Selected Ordered By: Dr. Adrián Malone Referrals / Follow Up: Sushila Urbano [Other] Care Physician,No Primary [NON-STAFF] - Disposition Disposition (needs filled in before D/C Order can be placed): Home, Self Care
[2022-04-15] MEDS: Erythromycin Base 1 OPTH.TUBE 1 APPLIC LEFT EYE (09:19)
[2022-04-15 09:23] LABS: Hemoglobin A1c 6.7 % (3.8-5.6)
[2022-04-15] MEDS: amLODIPine 10 MG Tablet PO (09:24)
[2022-04-15] MEDS: Lisinopril 20 MG Tablet PO (09:24)
[2022-04-15] MEDS: Famotidine 20 MG Tablet PO (09:24)
[2022-04-15] MEDS: Aspirin 81 MG TAB.CHEW PO (09:24)
[2022-04-15] MEDS: Carvedilol 6.25 MG Tablet PO (09:24)
[2022-04-15] MEDS: Enoxaparin 40 MG/0.4 ML Syringe SC (09:24)
[2022-04-15] MEDS: Ceftriaxone 1 GM/50 ML BAG IV (09:44)
[2022-04-15] MEDS: Insulin Lispro 100 UNIT/ML INSULN.PEN SC (11:36)
[2022-04-15 11:45] LABS: Bedside Glucose 208 mg/dL (74-106)
--- NOTE | 2022-04-15 12:33 | DS.PCM_ITS ---
Providers Date of Admission: 04/14/22 Date of Discharge: 04/15/22 Primary Care Physician: Sushila Urbano Reason For Visit: VERTIGO, NEAR SYNCOPE, PNA Diagnosis Discharge Diagnosis (1) Pneumonia: Status: Acute Code(s): J18.9 - Pneumonia, unspecified organism Qualifiers: Laterality: right Lung location: lower lobe of lung Pneumonia type: due to unspecified organism Qualified Code(s): J18.9 - Pneumonia, unspecified organism (2) Near syncope: Status: Acute Code(s): R55 - Syncope and collapse (3) Vertigo: Status: Acute Code(s): R42 - Dizziness and giddiness Medications at Discharge Home Medications amlodipine-benazepril [Lotrel] 1 cap PO DAILY 04/13/22 aspirin 81 mg PO BREAKFAST #30 tab 04/15/22 atorvastatin 40 mg PO QHS #30 tab 04/15/22 carvedilol 12.5 mg PO DAILY #0 tab 04/15/22 erythromycin 1 applic LEFT EYE 4X/DAY #3.5 g 04/15/22 levofloxacin 500 mg PO Q24H #5 tab 04/15/22 metformin 500 mg PO DAILY #0 tab 04/15/22 nicotine 14 mg TRANSDERMAL DAILY #28 ea 04/15/22 Hospital Course Summary of Care Provided Hospital Course: The patient is a 71 y/o M w/ PMHx with multiple comorbidities were admitted with acute sudden onset of vertigo with associated nausea and emesis, near syncopal event while at work. His dizziness and vertigo related turning to head to right side. Observation status changed to inpatient. #1. Vertigo with Near Syncope, possibly related to pneumonia: Twelve-lead EKG shows sinus rhythm with frequent PACs, QTC 414 ms. Initial 2 troponins negative. Patient is admitted to PCU. Brain CT no acute intracranial abnormal ity. 2D echo is ordered. Orthostatic vitals does not show significant abnormality. 04/14: MRI brain ordered as patient has persistent dizziness and vertigo, right lateral gaze diplopia with history of hypertension and diabetes mellitus type 2. No prior history of a stroke. 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 04/15 CTA head and neck reported normal. 2D echo EF 60% with stage I diastolic function consistent with chronic diastolic heart failure. No PFO. 30-day event monitor ordered. Fasting profile within normal limit except HDL 32. TSH normal. A1c 6.7%. [place]uc[place] reasonably well controlled. SOC neurology consult done agreed for discharge on baby aspirin and high intensity statin Patient also had left eye pink noticed yesterday and erythromycin ointment s tarted by nighttime hospitalist. Left eye redness, 80% improved. Patient said he had sticky eyelashes and eric feeling. Most probably left bacterial conjunctivitis or allergic conjunctivitis. Follow with PCP. Prescription for erythromycin ointment given #2. right lower lobe community Acquired Pneumonia with Hypoxia: Patient had leukocytosis with left shift on day of admission. Repeat CBC shows improvement. Chest x-ray individually reviewed shows right lower lobe infiltrate. As per ER physician, patient desaturated about 89% in ED but vital signs reviewed does not show hypoxia. Urinary antigens are negative. SARS-CoV-2 negative. Respiratory panel negative. Patient on IV Rocephin and Zithromax. Blood cultures x2 obtained in ED #3. Hypertension: continue patient home Coreg, bladder pain, benazepril with hold parameters as needed, PRN IV hydralazine. #4. Diabetes mellitus type II: Hold oral home regimen, i on clear liquids given #1 and if improving ADAT to ADA diet, accu checks w/ ISS. #5. Tobacco Abuse: Encouraged cessation, inpatient consultation per RT, NR if desired. #6. MARISSA: CPAP q HS. #7. DVT prophylaxis: SCDs, lovenox. #8. CODE status: Patient FRANCINE is his ex- Yue and living will is currently in place. Discussed CODE status at length including difference between FULL code, DNR-CCA and DNR-CC status. Following discussions about the differe nces in these status, requested Full Code status. Advanced Care Planning Face to Face Time: 16 minutes. 04/14/22 13:17: POC Glucose 136 H 04/14/22 16:24: POC Glucose 126 H 04/14/22 21:34: POC Glucose 118 H 04/15/22 05:39: Triglycerides 193, Cholesterol 179, LDL Cholesterol 108, VLDL Cholesterol 39, HDL Cholesterol 32 L, TSH 0.55 04/15/22 05:39: Hemoglobin A1c 6.7 H 04/15/22 06:46: POC Glucose 159 H 04/15/22 11:35: POC Glucose 208 H Clinical Impression(s) from Imaging Studies Brain CT 04/13/22 17:42 IMPRESSION: There are no acute intracranial findings. Chest X-Ray 04/13/22 20:48 IMPRESSION: Right lower lobe infiltrate. Brain MRI 04/14/22 11:35 IMPRESSION: Small acute left cerebellar nodulus infarct. Mild chronic small vessel ischemic gliosis. Physical Exam Narrative Physical Examination: General: Alert, Oriented x3, Cooperative HEENT: Vertigo, dizziness and diplopia has resolved. Field of vision intact. No quadrantanopsia/hemianopia/anopia. Atraumatic, PERRLA, EOMI, Normocephalic Oral: No Gingival or Mucosal Lesions/ Ulcerations Neck: Supple, No JVD, Negative Carotid Bruits Lungs: Air entry diminished in bilateral lung bases. No crepitation/rhonchi Cardiovascular: Regular rate, Regular Rhythm, Normal S1, Normal S2, No murmurs Abdomen: Bowel Sounds Present, Soft, Non Tender, Non-Distended : No renal angle tenderness. No suprapubic tenderness. Extremities: No edema, Capillary Refill Less than 3 Seconds Skin: No rashes, No breakdown Musculoskeletal: No Tenderness to Palpation of Joints or Extremities Neurological: Cranial nerves II-XII grossly intact, DTR 2+/4. Language function intact. No dysarthria/dysphagia. NIH stroke scale 0 Psych/Mental Status: Normal Affect, Appropriate. Weight / BMI Weight Weight: 196 lb 3.382 oz Body Mass Index (BMI) 25.0 ABG / Lab / Microbiology Data Result Diagrams: 04/14/22 05:35 04/14/22 05:35 Laboratory: Laboratory Results - last 24 hr 04/14/22 13:17: POC Glucose 136 H 04/14/22 16:24: POC Glucose 126 H 04/14/22 21:34: POC Glucose 118 H 04/15/22 05:39: Triglycerides 193, Cholesterol 179, LDL Cholesterol 108, VLDL Cholesterol 39, HDL Cholesterol 32 L, TSH 0.55 04/15/22 05:39: Hemoglobin A1c 6.7 H 04/15/22 06:46: POC Glucose 159 H 04/15/22 11:35: POC Glucose 208 H Microbiology: Microbiology 04/13/22 22:40 Mucosa - Nose Respiratory Panel (PCR) - Final 04/13/22 19:30 Urine, Clean Catch Legionella Antigen - Final 04/13/22 19:30 Urine, Clean Catch Streptococcus pneumoniae Antigen (M - Final 04/13/22 20:25 Nasal Secretion SARS-CoV-2 Antigen (Rapid) - Final Radiography Diagnostic Testing: Radiology Impression Echocardiogram 04/13/22 22:04 Interpretation Summary Normal LV size. Left ventricular systolic function is normal. The estimated ejection fraction is 60 %. Stage 1 diastolic dysfunction. Pulmonary artery systolic pressure is 40 mmHg. Brain MRI 04/14/22 11:35 IMPRESSION: Small acute left cerebellar nodulus infarct. Mild chronic small vessel ischemic gliosis. E Head/Neck CTA 04/14/22 13:36 IMPRESSION: Normal CTA Head and neck with contrast. Electronically Signed: Mu Christopher MD at 15:42 EDT , D/C Instructions Discharge Diet: Low fat / Low cholesterol, 1800 Calorie Control Diet and 2000 mg Sodium Diet Weight Bearing Status: Weight bearing as tolerated Call your doctor if you observe: Fever of 101 or Higher, Coldness, Increased Pain, Numbness or Tingling, Change in Color, Inability to urinate, Inability to have a bowel movement, Shortness of breath, Dizziness, Fainting spells, Swelling in the ankles, Chest pain, Increased palpitations (irregular heartbeat), Calf discomfort and Uncontrolled pain Meaningful Use Info Meaningful Use Diagnoses (Choose all that apply): Ischemic CVA CVA Therapy Assessed for PT,OT and/or ST?: Yes Ischemic Stroke Antithrombotic order at d/c?: Yes Dx of Atrial fib/flutter?: No Statins at discharge?: Yes Primary Dx Acute Ischemic CVA?: Yes IV tPA ordered during stay?: No Reason IV t-PA not ordered: Medical Contraindication Discharge Plan Admission Admit Date/Time: 04/14/22 10:22 Primary Reason for Your Visit: Attending Provider: Adrián Malone Consulting Providers: Mary Grace Portillo Instructions Additional Instructions / Restrictions: Patient wants to follow local neurologist in [place]. Advised to follow-up with neurologist in 2 weeks. Use erythromycin ointment for 4 days Discharge Orders/Prescriptions Prescriptions: New aspirin 81 mg Tablet,Chewable 81 mg PO BREAKFAST Qty: 30 RF: 2 atorvastatin 80 mg Tablet 40 mg PO QHS Qty: 30 RF: 1 erythromycin 5 mg/gram (0.5 %) Ointment 1 applic LEFT EYE 4X/DAY Qty: 3.5 RF: 0 nicotine 14 mg/24 hr Patch 24 Hour 14 mg transdermal DAILY Qty: 28 RF: 0 levofloxacin 500 mg tablet 500 mg PO Q24H Qty: 5 RF: 0 Continued amlodipine-benazepril [Lotrel] 10-20 mg Capsule 1 cap PO DAILY RF: 0 metformin 500 mg Tablet 500 mg PO DAILY Qty: 0 RF: 0 carvedilol 12.5 mg Tablet 12.5 mg PO DAILY Qty: 0 RF: 0 Other Ambulatory Orders: 30-Day Event Recorder (Routine) Location: None Selected Ordered By: Dr. Adrián Malone Referrals / Follow Up: Sushila Urbano [Other] Care Physician,No Primary [NON-STAFF] - Disposition Disposition (needs filled in before D/C Order can be placed): Home, Self Care Charges/Coding Visit Charges Inpatient E&M: 78158 Disch Hosp
[2022-04-15 16:11] LABS: Bedside Glucose 106 mg/dL (74-106)
[2022-04-16 13:34] LABS: Pathologist Review Reviewed
== END 2022-04-15 19:22 | disposition home or self-care (01) | DRG 64 ==
LOC: ED 21:11 → PCU 21:20
PROVIDERS: Admitting Provider Family Medicine; Emergency Provider Emergency Medicine; Visit Provider Internal Medicine
DX: I63.9 Cerebral infarction, unspecified (principal); J18.9 Pneumonia, unspecified organism; R29.700 NIHSS score 0; I11.0 Hypertensive heart disease with heart failure; I50.32 Chronic diastolic (congestive) heart failure; H10.12 Acute atopic conjunctivitis, left eye; E11.9 Type 2 diabetes mellitus without complications; E78.5 Hyperlipidemia, unspecified; G47.33 Obstructive sleep apnea (adult) (pediatric); I49.3 Ventricular premature depolarization; Z20.822 Contact with and (suspected) exposure to COVID-19; Z79.84 Long term (current) use of oral hypoglycemic drugs; Z79.82 Long term (current) use of aspirin; Z79.899 Other long term (current) drug therapy; F17.210 Nicotine dependence, cigarettes, uncomplicated
CPT/HCPCS: 36415; 70450; 70496; 70498; 70551; 71045; 80053; 80061; 81001; 82962; 83036; 83605; 83735; 84145; 84443; 84484; 85025; 87040; 87449; 87633; 87811; 92610; 93005; 93306; 97162; 97166; 97530; 99251; 99285; 99406; J7030; Q9957; A4216; G0463; J2405